=== PATIENT | male | born 1995 | race Caucasian/White ===

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

== ENCOUNTER 2017-12-10 21:25 | Emergency (ER) | payer MEDICAID ==
[~2017-12-10] VITALS: Ht 188 cm; Wt 98.1 kg
[2017-12-10 21:47] VITALS: Ht 188 cm; Wt 98.1 kg
[2017-12-10 23:01] VITALS: BP 123/72
== END 2017-12-10 23:01 | disposition home or self-care (01) ==
LOC: ED 21:25
DX: S93.509A Unspecified sprain of unspecified toe(s), initial encounter (principal); W22.8XXA Striking against or struck by other objects, initial encounter; Y93.89 Activity, other specified; Y92.89 Other specified places as the place of occurrence of the external cause; Y99.8 Other external cause status
CPT/HCPCS: 90715; J1885

== ENCOUNTER 2018-01-26 00:44 | Emergency (ER) | payer MEDICAID ==
[~2018-01-26] VITALS: Ht 190.5 cm; Wt 94.3 kg
[2018-01-26 01:01] VITALS: Ht 190.5 cm; Wt 94.3 kg
[2018-01-26 02:36] VITALS: BP 115/74
== END 2018-01-26 02:36 | disposition left against medical advice (07) ==
LOC: ED 00:44
DX: Z53.21 Procedure and treatment not carried out due to patient leaving prior to being seen by health care provider (principal)

== ENCOUNTER 2018-01-26 12:48 | Emergency (ER) | payer MEDICAID ==
[~2018-01-26] VITALS: Ht 190.5 cm; Wt 93.9 kg
[2018-01-26 12:51] VITALS: Ht 190.5 cm; Wt 93.9 kg
[2018-01-26 13:34] LABS: BASOPHIL % 0.3 % (0-2); PLATELET COUNT 208 x10^3mcL (130-400); RED CELL DISTRIBUTION WIDTH 12.6 % (11.5-14.5)
[2018-01-26 13:47] LABS: CALCIUM 9.2 mg/dL (8.5-10.1); CARBON DIOXIDE 28.1 mmol/L (21-32); CHLORIDE SERUM 98 mmol/L (98-107); GFR1 > 60 mL/min; GLUCOSE SERUM 109 mg/dL (74-106); POTASSIUM SERUM 3.6 mmol/L (3.5-5.1); SODIUM SERUM 138 mmol/L (136-145)
[2018-01-26 13:51] LABS: ALBUMIN 3.9 g/dL (3.4-5.0); ALKALINE PHOSPHATASE 77 U/L (46-116); ALT/SGPT 32 U/L (16-63); AMYLASE 31 U/L (25-115); AST/SGOT 18 U/L (15-37); BILIRUBIN TOTAL 1.51 mg/dL (0.20-1.00); LIPASE 81 IU/L (73-393); TOTAL PROTEIN, SERUM 7.8 g/dL (6.4-8.2)
[2018-01-26 14:32] LABS: microscopic required? NO
[2018-01-26 14:58] LABS: UA SPECIFIC GRAVITY 1.025 (1.005-1.035); urine erythrocyte NEGATIVE (NEGATIVE)
[2018-01-26 15:41] LABS: MAGNESIUM 1.5 mg/dL (1.8-2.4); PHOSPHOROUS 3.7 mg/dL (2.5-4.9)
[2018-01-26 15:51] LABS: T3 TOTAL 0.96 ng/mL
[2018-01-26 15:56] LABS: CHOLESTEROL/HDL RATIO 2.3
[2018-01-26 16:04] VITALS: BP 110/67
[2018-01-26 16:14] LABS: FREE T4 1.07 ng/dL (0.76-1.46); FREE THYROXINE INDEX 2.1 ug/dL (1.4-4.5); T4(THYROXINE) 6.9 ug/dL (4.7-13.3)
== END 2018-01-26 16:04 | disposition left against medical advice (07) ==
LOC: ED 12:48 → MU 14:50 → ED 14:50
PROVIDERS: Emergency Medicine; General Practice
DX: K56.7 Ileus, unspecified (principal); F14.10 Cocaine abuse, uncomplicated
CPT/HCPCS: 83880; 84439; J1885; J2405; J7030